=== PATIENT | female | born 1975 | race Caucasian/White ===

== ENCOUNTER → 2016-10-02 | Outpatient (CLI) | payer BC ==
--- NOTE | 2016-10-02 16:41 | MAMMOGRAPHY REPORT ---
BILATERAL DIGITAL SCREENING MAMMOGRAM TOMOSYNTHESIS WITH CAD: 10/02/2016 CLINICAL HISTORY: Routine screening. Patient has no complaints. TECHNIQUE: Breast tomosynthesis in addition to standard 2D mammography was performed. Current study was also evaluated with a Computer Aided Detection (CAD) system. COMPARISON: Comparison is made to exams dated: 07/27/2015 ultrasound biopsy, 07/27/2015 mammogram, 07/16/2015 ultrasound, and 07/05/2015 mammogram - [facility]. BREAST COMPOSITION: There are scattered areas of fibroglandular density in both breasts. FINDINGS: There is a newly visualized round circumscribed 6 mm mass seen within the right lower inn er quadrant, for which ultrasound is recommended for further evaluation. This may represent a cyst. The remainder of both breasts are stable compared to prior exams, without suspicious masses, calcifi cations, or areas of architectural distortion noted. Previously biopsied circumscribed benign-appea ring 11 mm mass seen within the left lower outer quadrant with an associated biopsy marker clip is s table compared to the prior exam. IMPRESSION: ACR BI-RADS CATEGORY 0: INCOMPLETE EVALUATION: NEED ADDITIONAL IMAGING EVALUATION New circumscribed 6 mm mass within the right lower inner quadrant, for which ultrasound is recommend ed for further evaluation. The patient will be called to schedule an appointment. Approximately 10% of breast cancers are not detected with mammography. A negative mammographic repor t should not delay biopsy if a clinically suggestive mass is present. Emi Layton M.D. /:10/02/2016 16:16:12 Cleaning Staff Supervisor: Gin Morales, [facility] letter sent: Addl Imaging 0 BI-RADS Code: ACR BI-RADS Category 0: Incomplete Evaluation: Need Additional Imaging Evaluation
== END | disposition home or self-care (01) ==
LOC: C.MAMM 07:09
PROVIDERS: ATTEND Family Medicine
DX: Z12.31 Encounter for screening mammogram for malignant neoplasm of breast (principal); N63 Unspecified lump in breast

== ENCOUNTER → 2016-10-10 | Outpatient (CLI) | payer BC ==
--- NOTE | 2016-10-10 12:52 | MAMMOGRAPHY REPORT ---
ULTRASOUND OF RIGHT BREAST: 10/10/2016 CLINICAL HISTORY: Callback from screening mammogram for circumscribed 6 mm mass in the right lower i nner quadrant. COMPARISON: Comparison is made to exams dated: 10/02/2016 mammogram, 07/05/2015 mammogram, 5 mammogram, and 07/16/2015 ultrasound - [facility]. TECHNIQUE: Real-time targeted ultrasound of the right breast was performed. FINDINGS: Real-time, high resolution targeted ultrasound was performed of the area of the new right breast mass, in the right breast at approximately 3 to 4:00. In the right breast at 3:00 periareol ar region, there is an oval circumscribed anechoic mass with posterior acoustic enhancement, measuri ng 5 x 4 x 6 mm. This corresponds with the new circumscribed mammographic mass and is consistent wi th a benign simple cyst. IMPRESSION: ACR BI-RADS CATEGORY 2: BENIGN Benign 6 mm simple cyst in the right breast at 3:00 on ultrasound, which corresponds with the new ci rcumscribed mammographic mass. There is no sonographic evidence of malignancy. A 1 year screening m ammogram is recommended. The patient was verbally notified of the results. Emi Layton M.D. ah/:10/10/2016 08:10:52 Attending Technologist: Julianna JACOBO(Mp)(M), [facility] Director Social Service: Emi Layton MD, [facility] letter sent: Normal 1/2 BI-RADS Code: ACR BI-RADS Category 2: Benign
== END | disposition home or self-care (01) ==
LOC: C.MAMM 07:59
PROVIDERS: ATTEND Family Medicine
DX: N60.01 Solitary cyst of right breast (principal)

== ENCOUNTER → 2017-10-09 | Outpatient (CLI) | payer BC ==
--- NOTE | 2017-10-12 07:40 | MAMMOGRAPHY REPORT ---
BILATERAL DIGITAL SCREENING MAMMOGRAM TOMOSYNTHESIS WITH CAD: 10/09/2017 CLINICAL HISTORY: Routine screening. Patient has no complaints. TECHNIQUE: Breast tomosynthesis in addition to standard 2D mammography was performed. Current study was also evaluated with a Computer Aided Detection (CAD) system. COMPARISON: Comparison is made to exams dated: 10/10/2016 ultrasound, 10/02/2016 mammogram, 07/27/2015 ultrasound biopsy, 07/27/2015 mammogram, 07/16/2015 ultrasound, and 07/05/2015 mammogram - [facility]. BREAST COMPOSITION: There are scattered areas of fibroglandular density in both breasts. FINDINGS: No suspicious masses, calcifications, or areas of architectural distortion are noted in ei ther breast. There has been no significant interval change compared to prior exams. Benign-appearing mass with an associated biopsy marker clip in the left 6:00 breast is stable. IMPRESSION: ACR BI-RADS CATEGORY 2: BENIGN There is no mammographic evidence of malignancy. A 1 year screening mammogram is recommended. The pa tient will receive written notification of the results. Approximately 10% of breast cancers are not detected with mammography. A negative mammographic report should not delay biopsy if a clinically suggestive mass is present. Emi Layton M.D. /:10/09/2017 07:35:20 Mash Filter Press Operator: Gin Morales, [facility] letter sent: Normal 1/2 BI-RADS Code: ACR BI-RADS Category 2: Benign
== END | disposition home or self-care (01) ==
LOC: C.MAMM 07:11
PROVIDERS: ATTEND Family Medicine
DX: Z12.31 Encounter for screening mammogram for malignant neoplasm of breast (principal)